=== PATIENT | female | born 1980 | race Caucasian/White ===

== ENCOUNTER 2016-11-20 09:54 | Emergency (ER) | payer MEDICAID ==
--- NOTE | 2016-11-20 11:04 | EDPHY ---
H & P Smoking Status: Never smoked Time Seen by Provider: 11/20/16 10:17 HPI/ROS: CHIEF COMPLAINT: Sore throat, cough HISTORY OF PRESENT ILLNESS: 36-year-old female presents to the emergency department by private vehicle complaining of sore throat and productive cough over the last 10 days. She has felt short of breath. She denies fevers or chills. No noon ill contacts. No recent travel. No abdominal pain. She denies neck or back pain. She does have pain in her chest especially with coughing. Denies any reported trauma. She did try Robitussin multi symptom cold without relief. REVIEW OF SYSTEMS: Constitutional: No fever, no chills. Eyes: No double or blurry vision. ENT: sore throat. Respiratory: Cough, shortness of breath Cardiac: No chest pain. Gastrointestinal: No abdominal pain, vomiting or diarrhea. Genitourinary: No dysuria. Musculoskeletal: No neck or back pain. Skin: No rashes. Neurological: No headache. (Robina Alvarez) Past Medical/Surgical History: Negative (Robina Alvarez) Social History: Works as a [employer] (Robina Alvarez) Physical Exam: General Appearance: Alert, no distress. 126/74, 100% on room air, afebrile. Eyes: Pupils equal and round. Extraocular motions are all intact. ENT: Mouth: Mucous membranes moist. Respiratory: No wheezing, rhonchi, or rales, lungs are clear to auscultation. Cardiovascular: Regular rate and rhythm. Gastrointestinal: Abdomen is soft and nontender, no masses, no rebound or guarding, bowel sounds normal. Neurological: Alert and oriented x 3, cranial nerves II through XII grossly intact Skin: Warm and dry, no rashes. Musculoskeletal: Nontender to palpate along the cervical, thoracic or lumbar spine. Neck is supple. Extremities: Full range of motion and no peripheral edema. Psychiatric: Patient is oriented X 3, there is no agitation. (Robina Alvarez) Constitutional: Initial Vital Signs Temperature (C) 36.8 C 11/20/16 09:59 Heart Rate 65 11/20/16 09:59 Respiratory Rate 18 11/20/16 09:59 Blood Pressure 126/74 H 11/20/16 09:59 O2 Sat (%) 100 11/20/16 09:59 O2 Delivery Mode Room Air Allergies/Adverse Reactions: No Known Allergies Allergy (Verified 01/06/16 09:20) Home Medications: Medication Instructions Recorded Albuterol [Proventil Inhaler HFA 1 - 2 puffs IH Q4PRN PRN #1 mdi 11/20/16 (*)] Azithromycin [Zithromax tab 250 mg] 250 mg PO DAILY #6 tab 11/20/16 Guaifenesin/Codeine Phosphate 5 - 10 ml PO Q4-6PRN PRN #200 ml 11/20/16 [Guaifenesin-Codeine Syrup] Hydrocodone/APAP 5/325 [[place] 1 each PO Q4-6PRN PRN #15 tab 11/20/16 5/325 (*)] Medical Decision Making ED Course/Re-evaluation: 36-year-old female presents to the emergency department with cough and shortness of breath. Clinically I think this patient likely has bronchitis. She will be treated with albuterol MDI and Zithromax. She was also given guaifenesin with codeine cough suppressant to help her sleep at night. She was instructed to return if she developed fever, shortness of breath, or if she felt worse in any way. (Robina Alvarez) I did not see this patient while she was in the emergency department. However her care was discussed with the PA while the patient was in the department. I agree with treatment plan and management (Chu Diaz) Differential Diagnosis: Including but not limited to bronchitis, pneumonia, viral upper respiratory infection, influenza, pneumothorax (Robina Alvarez) Departure - Departure Disposition: Home, Routine, Self-Care Clinical Impression: Acute bronchitis Condition: Good Instructions: Acute Bronchitis (ED) Additional Instructions: Zithromax daily for 5 days. Albuterol inhaler 2 puffs every 4 hours for one week and then as needed. Hydrocodone for cough suppression. Return to the emergency department if you feel short of breath, if you develop fever, or if you feel worse in any way. Referrals: Becky Mcclelland MD [Medical Doctor] - 2-3 days, if not improved (Primary care provider refrigeration mechanic) Prescriptions: Albuterol [Proventil Inhaler HFA (*)] 1 - 2 puffs IH Q4PRN PRN #1 mdi PRN Reason: Short Of Breath/Dyspnea Azithromycin [Zithromax tab 250 mg] 250 mg PO DAILY #6 tab Guaifenesin/Codeine Phosphate [Guaifenesin-Codeine Syrup] 5 - 10 ml PO Q4-6PRN PRN #200 ml PRN Reason: P.r.n. cough Hydrocodone/APAP 5/325 [[place] 5/325 (*)] 1 each PO Q4-6PRN PRN #15 tab PRN Reason: P.r.n. cough suppression
[2016-11-20 11:28] VITALS: BP 109/77; PULSE 104; RESP 20; TEMP 97.9; O2SAT 97
== END 2016-11-20 11:25 | disposition home or self-care (01) ==
DX: J20.9 Acute bronchitis, unspecified (principal)